=== PATIENT | male | born 1950 | race Caucasian/White ===

== ENCOUNTER 2017-09-25 15:12 | Inpatient (IN) | payer OTHER ==
[~2017-09-25] VITALS: Ht 172.7 cm; Wt 103.4 kg
--- NOTE | ~2017-09-25 | HC ---
[facility] [place] [address] [place] [address] CONSULTATION Name: JED MCKEON Room #: 221-P [facility] IN M.R.#: [id number] Admission: 09/25/17 Attend Phys: Nate Dillard MD Discharge: 09/30/17 Date of : 50 Report #: [id number] THIS REPORT FOR: //name// CC: Janis Dillard DATE OF SERVICE: 09/28/2017 CHIEF COMPLAINT: Bilateral lower extremity cellulitis. HISTORY OF PRESENT ILLNESS: This is a 67-year-old male patient with a history of hypertension, diabetes and alcohol abuse with cirrhosis, who was admitted from [facility] for lower extremity edema and cellulitis. He has been having ongoing swelling in his legs and drainage, redness and pain. He states that they are better since he has been here for the last couple of days. PAST MEDICAL HISTORY: Positive history of bulging disks, arthritis in his back, COPD, neuropathy, hypertension and atrial fibrillation. He has significant alcohol abuse and dependence with drinking a fifth of vodka daily, history of being a previous smoker, obstructive sleep apnea, history of alcohol withdrawal, hepatic encephalopathy and lower extremity edema. SOCIAL HISTORY: Positive for significant alcohol use and former smoker. FAMILY HISTORY: Noncontributory. REVIEW OF SYSTEMS: CONSTITUTIONAL: The patient denies fever, chills or weight loss. NEUROLOGICAL: The patient has a tremor. ENT: The patient denies earache, nasal drainage or sore throat. CARDIOVASCULAR: The patient denies chest pain, palpitations or diaphoresis. PULMONARY: The patient denies cough or shortness of breath. GASTROINTESTINAL: The patient denies nausea, vomiting or abdominal pain. ORTHOPEDIC: The patient complains of pain, swelling and drainage from his lower extremities. Other systems in a 14-point review of systems are negative. PHYSICAL EXAMINATION: VITAL SIGNS: At this time include pulse 67, respiratory rate of 17, temperature 97.3 and blood pressure 129/54. GENERAL: This is a chronically ill-appearing male patient, who appears to be in minimal distress. HEENT: Head normocephalic. Nose and throat are clear. NECK: Supple. LUNGS: Clear. HEART: Regular rate and rhythm. ABDOMEN: Distended. There may be some evidence of clinical ascites. [facility] [address] [place] [address] CONSULTATION Name: LINDAJED DYLAN Room #: 221-P [facility] IN ..#: [id number] Admission: 09/25/17 Attend Phys: Nate Dillard MD Discharge: 09/30/17 Date of : 50 Report #: [id number] tenderness noted. EXTREMITIES: Demonstrate 3+ edema, some lymph fistula is noted cutaneously. NEUROLOGIC: The patient is alert, does move all 4 extremities spontaneously. LABORATORY DATA: Includes sodium 137, potassium 4.1, BUN 22 and creatinine 1.6. Alkaline phosphatase 120, ALT is 14. Total protein 6.3. Albumin 2.6. White blood cell count 6.1 with a hemoglobin of 10.6 and hematocrit of 30.5. CLINICAL IMPRESSION: 1. Lymphedema, bilateral lower extremities. 2. Cellulitis, seemingly improved. RECOMMENDATIONS: At this point in time, we will recommend 0.1% triamcinolone cream and moisturizer to the lower extremities. We will recommend lymphedema therapy to start. We will recommend elevation of the lower extremities, nutritional support to maximize wound healing. Continue current medications. I appreciate being asked to see the patient in consultation. <ELECTRONICALLY SIGNED> By: Ismael Ryan MD 10/01/17 [phone] Ismael Ryan MD /nt
--- NOTE | ~2017-09-25 | HC ---
[facility] [place] [address] CONSULTATION Name: JED MCKEON Room #: 221-P [facility] IN M.R.#: [id number] Admission: 09/25/17 Attend Phys: Nate Dillard MD Discharge: 09/30/17 Date of : 50 Report #: [id number] THIS REPORT FOR: //name// CC: Janis Dillard DATE OF SERVICE: 09/28/2017 CHIEF COMPLAINT: Multiple ulcerations. HISTORY OF PRESENT ILLNESS: This is a 67-year-old male patient who was seen in the Intensive Care. He was admitted from his fpc. He was found unresponsive for an unknown period of time. Apparently CPR was started. He recovered spontaneous respirations. He had recently been hospitalized at [facility] for a necrotizing infection, requiring surgical intervention and skin grafting. He cannot provide a lot of information about himself at this time, although he complains of some pain. PAST MEDICAL HISTORY: Positive for a history of Gifvqlb-Elavl-Oujks. He has multiple cutaneous ulcerations, bilateral above-knee amputations. The patient had a perforated colon, requiring exploratory laparotomy and colostomy. He developed a possible necrotizing infection of his scrotum and perineum. He developed necrotizing lesion in his left arm from an infiltrated IV. He has required skin grafting in these areas. The patient also has a history of coronary artery disease and peripheral arterial disease. MEDICATIONS: Include amiodarone, gentamicin, sliding scale insulin and glucose. PAST SURGICAL HISTORY: Positive history of coronary artery bypass grafting as well as the detail procedures up above. ALLERGIES: Unknown. SOCIAL HISTORY: Unknown. FAMILY HISTORY: Unknown. REVIEW OF SYSTEMS: Unable to obtain due to the patient's level of consciousness. PHYSICAL EXAMINATION: VITAL SIGNS: At this time include temperature 96.5, pulse 114, respiratory rate 20 and blood pressure 96/63. GENERAL: This is a chronically ill-appearing male patient who appears to be in mild discomfort. HEENT: Head normocephalic. Nose and throat are clear. [address] [address] CONSULTATION Name: JED MCKEON Room #: 221-P [facility] IN M.R.#: [id number] Admission: 09/25/17 Attend Phys: Nate Dillard MD Discharge: 09/30/17 Date of : 50 Report #: [id number] NECK: Supple. LUNGS: Diminished. HEART: Tachycardic, without murmur. ABDOMEN: Soft. There is a surgical wound in the midline that appears to be healing. There is a mix of some fibrin and granulation, but no evidence of exposed deep structures and no evidence of infection. He has a colostomy that appears to be intact and the periostomy skin appears to be intact. SKIN: He has multiple excoriations to both buttocks that are superficial. He has a surgical wound to the left lateral thigh, likely a skin graft donor site. It is relatively clean and granulating. He has a wound to the left hand, which is mostly closed. CLINICAL IMPRESSION: 1. Multiple excoriations to the buttocks bilaterally. 2. Necrotizing infection of the left hand, status post split-thickness skin grafting. 3. Scrotal ulceration, likely secondary to prior surgical intervention for necrotizing infection. 4. Skin graft donor site, left lateral thigh. 5. Abdominal wall surgical wound. 6. Recent history of sepsis and necrotizing infection. RECOMMENDATIONS: At this point in time, we will recommend aggressive nutritional support to maximize wound healing and glycemic control. Recommend Xeroform gauze to the surgical wound to the abdominal wall as well as to the left lateral thigh. We will recommend a normal ostomy care to the colostomy. Recommend a bordered foam to his left hand and InterDry AG to help with some of the macerated skin in the scrotal and perineal region. He will need every 2-hour turning and repositioning. We will recommend continuing current medications. I appreciate being asked to see the patient in consultation. <ELECTRONICALLY SIGNED> By: Ismael Ryan MD 10/01/17 [phone] Ismael Ryan MD /pancho
--- NOTE | ~2017-09-25 | PATH ---
[facility] [place] [address] PATHOLOGY RPT PROCEDURE Name: JED TRAN Room #: 221-P [facility] IN M.R.#: [id number] Admission: 09/25/17 Date of : 50 Discharge: 09/30/17 Report #: [id number] Path Case #: [id number] [facility] Accession Number: [id number] . 01 Material submitted: . PART A: POLYP AT TRANSVERSE COLON PART B: MASS AT SIGMOID COLON . 01 Clinical history: . Pre-Op DX: Colon screening Post-Op DX: Colon polyp, sigmoid mass, diverticulosis . 02 Diagnosis: A. Polyp, transverse colon, endoscopic biopsy: - Compatible with a hyperplastic polyp. - Negative for dysplasia. . B. Mass, at sigmoid colon, endoscopic biopsy: - TINY FRAGMENT OF PARTIALLY SAMPLED TUBULAR ADENOMA ASSOCIATED WITH HIGH GRADE DYSPLASIA, FEW GLANDS SUSPICIOUS FOR INVASION (PLEASE SEE COMMENT). - Background of granulation tissue. - Fragments of unremarkable mucosa. LBQ/09/30/2017 . 02 Comment: Part B: Examination shows fragments of unremarkable mucosa along with two superficial foci of a tubular adenoma associated with high grade dysplasia. Attached to this fragment along with another additional fragment are samples of granulation tissue with an irregular gland. There is no desmoplasia or stromal reaction identified with this irregular gland. The lack of desmoplasia precludes a definitive diagnosis of invasive adenocarcinoma. (IUV/db; 09/30/17) . Co-review: Dr. Shanthi Obando . 02 Electronically signed: . Shante Spencer MD, Pathologist NPI- [id number] . 01 Gross description: . A. Received in formalin labeled "Jed Tran, polyp at transverse colon," is a single segment of sherman soft tissue measuring 0.2 cm in maximum dimension. The specimen is entirely submitted in cassette A1. . B. Received in formalin labeled "Jed Tran, BX mass sigmoid colon," are multiple segments of sherman soft tissue measuring 0.8 x 0[address] [address] PATHOLOGY RPT PROCEDURE Name: JED TRAN DYLAN Room #: 221-P DIS IN M.R.#: [id number] Admission: 09/25/17 Date of : 50 Discharge: 09/30/17 Report #: [id number] Path Case #: [id number] cm in aggregate dimensions. The specimen is filtered and submitted entirely in cassette B1. (TSD; 09/29/2017) TOB/TOB . 02 Pathologist provided ICD-10: D12.5, K63.5 . 02 CPT . 632845, 354843 Performed at: [address], [place] [id number] MD Bentley Ibarra MD Phone: [phone] Performed at: [address] [id number] MD Shante Spencer MD Phone: [phone]
--- NOTE | ~2017-09-25 | 2DMMODE ---
[place] [address] [facility] [place] [address] 2 D/M-MODE ECHOCARDIOGRAM Name: JED MCKEON Room #: 427-P ADM IN M.R.#: [id number] Admission: 09/25/17 Attend Phys: Nate Dillard MD Discharge: Date of : 50 Date of Service: 09/26/17 1005 Report #: [id number] THIS REPORT FOR: //name// APPROVED REPORT Study performed: 09/26/2017 08:02:34 EXAM: Comprehensive 2D, Doppler, and color-flow Echocardiogram Patient Location: Bedside Room #: 427 Status: on-call BSA: 2.16 HR: 68 bpm BP: 113/41 mmHg Rhythm: NSR Other Information Study Quality: Adequate Indications Cough, leg swelling. Hx: A-fib, COPD, HTN, ETOH abuse. 2D Dimensions RVDd: 37.57 mm LVEF(%): 67.62 (>50%) IVSd: 11.25 (7-11mm) LVOT Diam: 22.33 (18-24mm) LVDd: 51.04 mm PWd: 11.94 (7-11mm) Ascending Ao: 32.23 (22-36mm) LVDs: 31.74 (25-40mm) Aortic Root: 34.27 mm Blancas's LVEF: 67.62 % Volumes Left Atrial Volume (Systole) Single Plane 4CH: 53.64 mL Single Plane 2CH: 75.15 mL LA ESV Index: 32.00 mL/m2 Aortic Valve AoV Peak Pablo.: 2.01 m/s AO Peak Gr.: 16.12 mmHg LVOT Max P.58 mmHg AO Mean Gr.: 9.07 mmHg AO V2 Mean: 1.43 m/s LVOT Max V: 1.38 m/s AO V2 VTI: 47.36 cm TIFFANY Vmax: 2.68 cm2 Mitral Valve [facility] [address] 2 D/M-MODE ECHOCARDIOGRAM Name: JED MCKEON Room #: 427-P [facility] IN .R.#: [id number] Admission: 09/25/17 Attend Phys: Nate Dillard MD Discharge: Date of : 50 Date of Service: 09/26/17 1005 Report #: [id number] E/A Ratio: 0.9 MV Decel. Time: 331.01 ms MV E Max Pablo.: 1.13 m/s MV A Pablo.: 1.24 m/s MV PHT: 95.99 ms IVRT: 69.20 ms Pulmonary Valve PV Peak Pablo.: 0.92 m/s PV Peak Gr.: 3.40 mmHg Pulmonary Vein P Vein S: 0.96 m/s P Vein A: 0.32 m/s P Vein D: 0.65 m/s P Vein A Dur.: 143.0 msec P Vein S/D Ratio: 1.48 Tricuspid Valve TR Peak Pablo.: 3.57 m/s RAP Estimate: 5.00 mmHg TR Peak Gr.: 51.12 mmHg PA Pressure: 56.00 mmHg Left Ventricle The left ventricle is normal size. There is normal LV segmental wall motion. There is normal left ventricular wall thickness. Left ventricular systolic function is normal. LVEF is 55-60%. Mild diastolic dysfunction is present (impaired relaxation pattern). Right Ventricle The right ventricle is normal size. The right ventricular systolic function is normal. Atria The left atrium size is normal. The right atrium size is normal. Aortic Valve Aortic valve is mildly calcified. No aortic regurgitation is present. There is no aortic valvular stenosis. Mitral Valve The mitral valve is normal in structure. Moderate mitral annular calcification. Mild to moderate mitral regurgitation. No evidence of mitral valve stenosis. Tricuspid Valve The tricuspid valve is normal in [place] [address] 2 D/M-MODE ECHOCARDIOGRAM Name: JED MCKEON Room #: 427-P [facility] IN .R.#: [id number] Admission: 09/25/17 Attend Phys: Nate Dillard MD Discharge: Date of : 50 Date of Service: 09/26/17 1005 Report #: [id number] regurgitation. Estimated PAP is 55-60mmHg. Pulmonic Valve Pulmonic valve is not well visualized. Great Vessels The aortic root is normal in size. The ascending aorta is normal in size. IVC is normal in size and collapses >50% with inspiration. Pericardium There is no pericardial effusion. Left pleural effusion is noted. <Conclusion> The left ventricle is normal size. There is normal left ventricular wall thickness. Left ventricular systolic function is normal. Mild diastolic dysfunction is present (impaired relaxation pattern). The right ventricle is normal size. The left atrium size is normal. There is no aortic valvular stenosis. The mitral valve is normal in structure. Moderate mitral annular calcification. Mild to moderate mitral regurgitation. Mild tricuspid regurgitation. Estimated PAP is 55-60mmHg. <ELECTRONICALLY SIGNED> By: Sudhir Cordova MD 09/26/17 1005 1005 1005 Sudhir Cordova MD /INF
--- NOTE | ~2017-09-25 | HC ---
[facility] [address] [address] CONSULTATION Name: JED TRAN Room #: 427-P ADM IN M.R.#: [id number] Admission: 09/25/17 Attend Phys: Nate Dillard MD Discharge: Date of : 50 Report #: [id number] THIS REPORT FOR: //name// CC: Janis Dillard DATE OF SERVICE: 09/26/2017 CONSULTATION: Infectious Diseases. HISTORY OF PRESENT ILLNESS: Mr Tran is a 67-year-old white male who comes to the hospital because of cellulitis and swelling of his legs. The patient had been recently hospitalized for complications related to alcoholic liver disease. He was noted to have stasis and edema in his legs. He has been prescribed elevation and CARLTON hose compression stockings. The patient says he was doing this at home and was doing well and then the legs just "blew up." They became red, warm, tender, painful and draining. In this setting, the patient was seen at [facility] where he had been recently and was referred to [place] for further therapy. PAST MEDICAL HISTORY: Significant for diabetes, atrial fibrillation, diastolic dysfunction with some mitral regurgitation, chronic edema, cirrhosis, COPD, osteoarthritis, chronic back pain. MEDICATION RECONCILIATION: Current medications include spironolactone 50 mg daily, vancomycin 1000 mg IV twice a day, gabapentin 400 mg daily, iron 325 mg daily, donepezil 5 mg daily, magnesium oxide 400 mg daily, citalopram 20 mg daily, furosemide 40 mg b.i.d., pantoprazole 40 mg daily, enoxaparin 30 mg at bedtime, risperidone 0.25 mg b.i.d., lactulose 10 grams b.i.d., tamsulosin 0.4 mg at bedtime, Silvadene and miconazole to the skin on the lower legs, MiraLax 17 grams daily. SOCIAL HISTORY: The patient is . He lives by himself. 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 He did smoke cigarettes, but quit about 6 years ago. He did drink alcohol, but has been completely abstinent for about the last year. He says he has good support from friends and family in his community of [place], [place], although he does live by himself. REVIEW OF SYSTEMS: GENERAL: The patient is not complaining of fevers, chills, sweats. ENT: The patient is complaining of seasonal allergies. No sore throat, trouble swallowing. CHEST: The patient denies cough, chest pain, shortness of breath. GASTROINTESTINAL: The patient denies nausea, vomiting. He has loose stools from medication. [facility] [address] [place] [address] CONSULTATION Name: JED TRAN Room #: 427-P [facility] IN M.R.#: [id number] Admission: 09/25/17 Attend Phys: Nate Dillard MD Discharge: Date of : 50 Report #: [id number] GENITOURINARY: No complaints. EXTREMITIES: Pain in both lower legs, particularly on the right. The information is most concentrated in the area of his Achilles tendons. PHYSICAL EXAMINATION: GENERAL: The patient appears older than her stated age, alert, oriented, comfortable, not in any distress. VITAL SIGNS: Show the patient is afebrile. SKIN: Shows no exanthems. The lower legs show chronic venous stasis changes. There appears to be mild to moderate superimposed cellulitis with erythema. The skin is very dry and dyshidrotic. There is 1-2+ swelling. The patient says this is actually better than his usual baseline. The patient says that the legs have been weeping in spite of using his CARLTON hose and keeping his legs elevated. ENT: Shows the subconjunctival hemorrhage on the right eye. Oral cavity normal. HEART: Sounds normal. LUNGS: Clear. ABDOMEN: Belly soft, not tender. Possible mild distention with ascites. EXTREMITIES: As noted with the skin changes, 1+ edema bilaterally, left greater than right. LABORATORY DATA: White count is 5.3, hemoglobin 9.7, platelets have not been measured. Electrolytes normal. BUN 20, creatinine 1.0. Glucose has ranged from 93-107. The ammonia is 5. Blood cultures x 2 are negative so far. Sonogram shows cirrhosis of the liver with fatty liver. IMPRESSION: Stasis with secondary cellulitis. I concur with vancomycin. The Zosyn has been discontinued. We will need to do elevation and compression. I also instructed to put pillows behind the calves. I will try to get Tubigrip stockings. I think the patient's main problem is dyshidrosis which should resolve with elevation, compression and a moisturizing cream. I will have dietitian bring Lalo to try to improve wound healing and skin nutrition as well as measure a zinc level. We can check the BNP. At this point, the patient's cellulitis is relatively minor. I think aggressive treatment of the edema will resolve his problems. He will need to maintain this elevation and compression regimen after discharge to prevent a relapse. <ELECTRONICALLY SIGNED> By: Bhavik Wei MD 09/27/17 1529 1155 0026 Bhavik Wei MD /pancho
[~2017-09-25 15:12] MED LIST: 8 HOUR PAIN RE650 M1 PER TUBE; AMLODIPINE BESY10 MG PO; ASPIRIN325 PO; BENICAR40 MG PO; BIOTENE MOIST44.3 ML; BUSPIRONE HCL10 MG PER TUBE; CARDIZEM30 MG PER TUBE; CLONIDINE0.1 PER TUBE; COREG25 MG PER TUBE; FLOMAX0.4 MG PER TUBE; HTN MEDS; HYDROCODON-ACE1 EAC8 PO; IBUPROFEN 800800 MG PO; LASIX 20 MG TAB20 MG PO; MICONAZOLE5 GM TOP; NEURONTIN 300300 M1 PO; NORCO 5-325 TA1 EACH PO; NORFLEX100 MG PO; OLANZAPINE2.5 MG PER TUBE; OXYCODONE HCL 55 MG PO; PACERONE 200 M200 M1 PER TUBE; PEPCID20 MG PER TUBE; SILVADENE20 GM TP; VITAMIN B-1100 M1 PER TUBE; XIFAXAN550 M1 PER TUBE
[2017-09-25 15:18] VITALS: BP 152/56
[2017-09-25 17:58] LABS: ABSOLUTE NEUTROPHILS 3.4 thou/uL (1.4-8.2); EOSINOPHILS 6.8 % (0.0-3.0); HEMATOCRIT 32.3 % (42.0-52.0); HEMOGLOBIN 11.1 gm/dL (14.0-18.0); LYMPHOCYTES 32.3 % (24.0-44.0); MCH 33.1 pg (26.0-34.0); MCHC 34.5 g/dL (28.0-37.0); MCV 96.2 fL (80.0-100.0); MONOCYTES 10.3 % (1.0-8.0); POLYS 49.6 % (36.0-66.0); RBC 3.36 mil/uL (4.50-6.00); RDW 15.2 % (10.5-14.5); WBC 6.9 thou/uL (4.0-11.0)
[2017-09-25 18:08] LABS: CALCIUM 9.1 mg/dL (8.5-10.1); CREATININE 1.6 mg/dL (0.7-1.3); POTASSIUM 4.1 mmol/L (3.5-5.1)
[2017-09-25 18:13] LABS: ALBUMIN 2.6 g/dL (3.4-5.0); TOTAL BILIRUBIN 3.2 mg/dL (<0.1-1.0); TOTAL PROTEIN 6.3 g/dL (6.4-8.2)
[2017-09-25] MEDS ORDERED: CONSTULOSE10 GM/152 PO (18:25)
[2017-09-25] MEDS ORDERED: LEXAPRO 10 MG T10 M1 PO (18:25)
[2017-09-25] MEDS ORDERED: MAGOX 400400 MG PO (18:26)
[2017-09-25] MEDS ORDERED: LASIX 40 MG TAB40 M2 PO (18:26)
[2017-09-25] MEDS ORDERED: ALDACTONE50 MG PO (18:28)
[2017-09-25 18:30] LABS: PLATELET ESTIMATE NORMAL
[2017-09-25] MEDS ORDERED: ARICEPT 5 MG TAB5 MG PO (18:30)
[2017-09-25 18:31] LABS: LARGE PLATELETS OCCASIONAL
[2017-09-25] MEDS ORDERED: PROTONIX40 M1 PO (18:32)
[2017-09-25] MEDS ORDERED: FOLIC ACID 40400 MC1 PO (18:33)
[2017-09-25] MEDS ORDERED: IRON325 PO (18:33)
[2017-09-25] MEDS ORDERED: RISPERIDONE 00.25 M1 PO (18:36)
[2017-09-25] MEDS ORDERED: NEURONTIN 400M400 M2 PO (18:36)
[2017-09-25 19:05] VITALS: BP 152/67
[2017-09-25 21:01] VITALS: BP 152/57
[2017-09-26 05:18] LABS: HEMATOCRIT 27.2 % (42.0-52.0); HEMOGLOBIN 9.7 gm/dL (14.0-18.0); MCH 33.9 pg (26.0-34.0); MCHC 35.7 g/dL (28.0-37.0); MCV 94.9 fL (80.0-100.0); RBC 2.86 mil/uL (4.50-6.00); WBC 5.3 thou/uL (4.0-11.0)
[2017-09-26 05:31] LABS: CALCIUM 8.3 mg/dL (8.5-10.1); CREATININE 1.6 mg/dL (0.7-1.3); POTASSIUM 3.9 mmol/L (3.5-5.1)
[2017-09-26 05:33] VITALS: BP 113/41
[2017-09-26 07:09] VITALS: BP 122/39
[2017-09-26 19:48] VITALS: BP 118/49
[2017-09-27 04:20] VITALS: BP 119/46
[2017-09-27 05:50] LABS: ABSOLUTE NEUTROPHILS 2.8 thou/uL (1.4-8.2); BASOPHILS 0.8 % (0.0-2.0); EOSINOPHILS 8.5 % (0.0-3.0); HEMATOCRIT 30.5 % (42.0-52.0); HEMOGLOBIN 10.6 gm/dL (14.0-18.0); LYMPHOCYTES 34.5 % (24.0-44.0); MCH 33.3 pg (26.0-34.0); MCHC 34.6 g/dL (28.0-37.0); MCV 96.2 fL (80.0-100.0); MONOCYTES 9.3 % (1.0-8.0); POLYS 46.9 % (36.0-66.0); RBC 3.17 mil/uL (4.50-6.00); RDW 14.6 % (10.5-14.5); WBC 6.1 thou/uL (4.0-11.0)
[2017-09-27 05:59] LABS: INR 1.3; PROTIME 13.2 Seconds (9.3-11.4)
[2017-09-27 06:00] LABS: CALCIUM 8.8 mg/dL (8.5-10.1); CREATININE 1.6 mg/dL (0.7-1.3); POTASSIUM 3.9 mmol/L (3.5-5.1)
[2017-09-27 06:10] LABS: % SATURATION 51 % (20-39); IRON 99 ug/dL (65-175); TIBC 195 ug/dL (250-450)
[2017-09-27 07:06] VITALS: BP 145/55
[2017-09-27 07:55] LABS: LARGE PLATELETS MANY
[2017-09-27 19:23] VITALS: BP 130/58
[2017-09-28 08:07] VITALS: BP 155/68
[2017-09-28 13:05] LABS: ALBUMIN 2.6 g/dL (3.4-5.0); DIRECT BILIRUBIN 1.4 mg/dL (<0.1-0.3); TOTAL BILIRUBIN 4.3 mg/dL (<0.1-1.0); TOTAL PROTEIN 6.3 g/dL (6.4-8.2)
[2017-09-28 13:50] LABS: CALCIUM 9.4 mg/dL (8.5-10.1); CREATININE 1.6 mg/dL (0.7-1.3); POTASSIUM 4.1 mmol/L (3.5-5.1)
[2017-09-28 15:07] LABS: HEPATITIS B SURFACE AG Negative (Negative); HEPATITIS C VIRUS AB 0.1 (0.0-0.9)
[2017-09-28 19:46] VITALS: BP 129/54
[2017-09-29 07:15] VITALS: BP 117/52
[2017-09-29 12:11] LABS: MITOCHONDRIAL ANTIBODY 7.6 Units (0.0-20.0)
[2017-09-30 00:03] VITALS: BP 93/50
[2017-09-30 07:21] LABS: HEMATOCRIT 29.5 % (42.0-52.0); HEMOGLOBIN 10.5 gm/dL (14.0-18.0); MCH 33.7 pg (26.0-34.0); MCHC 35.7 g/dL (28.0-37.0); MCV 94.4 fL (80.0-100.0); RBC 3.13 mil/uL (4.50-6.00); RDW 14.7 % (10.5-14.5)
[2017-09-30 07:26] LABS: CALCIUM 8.7 mg/dL (8.5-10.1); CREATININE 1.5 mg/dL (0.7-1.3); POTASSIUM 3.9 mmol/L (3.5-5.1)
[2017-09-30 08:12] VITALS: BP 100/55
[2017-09-30] MEDS ORDERED: KEFLEX500 M1 PO (09:52)
[2017-09-30 10:49] VITALS: BP 100/55
== END 2017-09-30 10:15 | disposition home or self-care (01) | DRG 602 ==
LOC: ER 15:12 → EROBS 18:41 → SICU 18:41 → 4E 20:46 → SICU 09-27 15:51
PROVIDERS: Hospitalist; Internal Medicine; Internal Medicine Gastroenterology; Nurse Practitioner; Physician Assistant
DX: L03.116 Cellulitis of left lower limb (principal); E43 Unspecified severe protein-calorie malnutrition; I50.33 Acute on chronic diastolic (congestive) heart failure; I11.0 Hypertensive heart disease with heart failure; L03.115 Cellulitis of right lower limb; M19.90 Unspecified osteoarthritis, unspecified site; J44.9 Chronic obstructive pulmonary disease, unspecified; I48.91 Unspecified atrial fibrillation; G47.33 Obstructive sleep apnea (adult) (pediatric); E11.40 Type 2 diabetes mellitus with diabetic neuropathy, unspecified; K70.30 Alcoholic cirrhosis of liver without ascites; M51.36 Other intervertebral disc degeneration, lumbar region; F32.9 Major depressive disorder, single episode, unspecified; D69.6 Thrombocytopenia, unspecified; D64.9 Anemia, unspecified; D12.3 Benign neoplasm of transverse colon; K31.819 Angiodysplasia of stomach and duodenum without bleeding; N50.89 Other specified disorders of the male genital organs; I87.8 Other specified disorders of veins; K63.9 Disease of intestine, unspecified; K76.0 Fatty (change of) liver, not elsewhere classified; K80.20 Calculus of gallbladder without cholecystitis without obstruction; N40.0 Benign prostatic hyperplasia without lower urinary tract symptoms; S30.810A Abrasion of lower back and pelvis, initial encounter; X58.XXXA Exposure to other specified factors, initial encounter; Y93.89 Activity, other specified; Y92.89 Other specified places as the place of occurrence of the external cause; Y99.8 Other external cause status; Z79.899 Other long term (current) drug therapy; Z68.34 Body mass index [BMI] 34.0-34.9, adult; Z87.891 Personal history of nicotine dependence; Z89.612 Acquired absence of left leg above knee; Z89.611 Acquired absence of right leg above knee; Z95.1 Presence of aortocoronary bypass graft; Z80.0 Family history of malignant neoplasm of digestive organs
CPT/HCPCS: 10084; 15002; 62110; 62900; 70005

== ENCOUNTER 2017-12-08 05:28 | Inpatient (IN) | payer OTHER ==
[~2017-12-08] VITALS: Ht 172.7 cm; Wt 116.1 kg
--- NOTE | ~2017-12-08 | PATH ---
[facility] [address] [place] [address] PATHOLOGY RPT PROCEDURE Name: JED MCKEON Room #: 245-P DIS IN M.R.#: [id number] Admission: 12/09/17 Date of : 50 Discharge: 12/22/17 Report #: [id number] Path Case #: [id number] Note [facility] Accession Number: [id number] TESTS RESULT FLAG UNITS REF RANGE LAB Clinician Provided Cytology Information No. of containers..01 Other (Miscellaneous) Source: PLEURAL FLUID DIAGNOSIS: 02 PLEURAL FLUID INCONCLUSIVE. REACTIVE MESOTHELIAL CELLS ARE PRESENT. THIS INTERPRETATION INCLUDES EVALUATION OF A CELL BLOCK. COMMENT; FEW ATYPICAL CELLS WERE PRESENT WHICH WERE NEGATIVE FOR MARIXA-EP4 AND POSITIVE FOR CALRETININ CONSISTENTW ITH REACTIVE MESOTHELIAL CELLS. ABUDANT ACUTE AND CHRONIC INFLAMMATORY CELLS ARE ALSO PRESENT Signed out by: 02 Glen Lopez MD, Pathologist NPI- [id number] Performed by: Oumar Cartagena, Labor Delivery Rn ([facility]) Gross description: 01 20ML, RED, CLOUDY /LCS FLAG LEGEND: L-Low Normal,H-High Normal,LL-Alert Low,HH-Alert High <-Panic Low,>-Panic High,A-Abnormal,AA-Critical Abnormal Performed at: [address] [place] [address] Bentley Ibarra MD, [address] [address] Shante Spencer MD, Specimen Comment: A courtesy copy of this report has been sent to Specimen Comment: [phone]. Specimen Comment: Report sent to Specimen Comment: A duplicate report has been generated due to demographic updates. Performed at: [address], [place], [place] [id number] [address] [address] PATHOLOGY RPT PROCEDURE Name: JED MCKEON Room #: 245-P DIS IN M.R.#: [id number] Admission: 12/09/17 Date of : 50 Discharge: 12/22/17 Report #: [id number] Path Case #: [id number] MD Bentley Ibarra [place] Phone: [phone]
--- NOTE | ~2017-12-08 | HC ---
[facility] [place] [address] [place] [address] CONSULTATION Name: JEANNINEJED CHOWDHURY Room #: 245-P [facility] IN M.R.#: [id number] Admission: 12/09/17 Attend Phys: Sacha Roe Discharge: 12/22/17 Date of : 50 Report #: [id number] THIS REPORT FOR: //name// CC: Sacha Mitchell Janis Mcmullen DATE OF SERVICE: 12/15/2017 REASON FOR CONSULTATION: Elevated creatinine. HISTORY OF PRESENT ILLNESS: This 67-year-old patient with known cirrhosis was admitted for a laparoscopic sigmoidectomy for indication of tubular adenoma with high-grade dysplasia concerning for invasive carcinoma. Postoperatively, he was recovering uneventfully until yesterday when he developed decreased appetite, abdominal distention, underwent a CAT scan of the abdomen with IV contrast, developed decreasing urine output, decreased blood pressure and then elevated creatinine from 1.1-2.0, elevated BUN from 22-33. He is transferred to ICU. Procalcitonin was rather high. PAST MEDICAL HISTORY: Known diagnosis of cirrhosis, COPD, paroxysmal atrial fibrillation, chronic tremor. FAMILY HISTORY: Positive for cancer and tremor. REVIEW OF SYSTEMS: Cannot be taken due to the fact that he is quite lethargic in the ICU, difficult to arouse. PHYSICAL EXAMINATION: GENERAL: This is a chronically ill-appearing gentleman, again somnolent, difficult to arouse in ICU, nasal cannula oxygen in place. SKIN: Shows him to be rather swollen. SKELETAL: Well-developed, well-nourished. HEENT: Extraocular movements cannot be tested. Sclerae are icteric. Mucous membranes are dry. NECK: Supple. CHEST: Shows diminished breath sounds. HEART: Regular with tachycardia. ABDOMEN: Distended, diffusely tender with rebound. EXTREMITIES: Showing 1-2+ edema throughout. LABORATORY DATA: Hemoglobin 10.9, white count 17, platelets 114. Sodium 141, potassium 4.3, chloride 109, bicarbonate 22, creatinine 2 up from 1.1, BUN 22 up from 33. ASSESSMENT AND PLAN: 1. Acute kidney injury. He appears to be septic, likely has peritonitis with [facility] [address] [place] [address] CONSULTATION Name: JED MCKEON Room #: 245-P [facility] IN M.R.#: [id number] Admission: 12/09/17 Attend Phys: Sacha Roe Discharge: 12/22/17 Date of : 50 Report #: [id number] peritoneal findings, leukocytosis, a very high procalcitonin and now in the setting of decreasing blood pressure. He also has an element of contrast nephropathy. He got IV contrast with his CAT scan yesterday and certainly that is playing some role. I expect we may have trouble with acute kidney injury in an ongoing fashion here. I will be getting some coags as well. This may actually come towards renal replacement therapy. I will be giving him some IV fluids in an effort to increase his urine output. 2. Apparent peritonitis, status post laparoscopic sigmoidectomy. 3. Cirrhosis. 4. History of chronic obstructive pulmonary disease. <ELECTRONICALLY SIGNED> By: Reji Magallon MD 12/24/17 1107 1132 1349 Reji Magallon MD /nt
--- NOTE | ~2017-12-08 | EKG ---
[address] [address] ELECTROCARDIOGRAM REPORT Name: MARIOLUCIANAJED Room #: 150-7 ADM IN M.R.#: [id number] Admission: 12/09/17 Attend Phys: Sacha Roe Discharge: Date of : 50 Report #: [id number] THIS REPORT FOR: //name// [facility] Test Date: 2017-12-09 Test Time: 07:47:46 Pat Name: JED MCKEON Department: Room: 150 7 Gender: M Baccarat Manager: JUANITO : 1950 Requested By: Sacha Mitchell Order Number: [id number] MD: Nitin Franks Measurements Intervals Causey Rate: 82 P: 62 IL: 161 QRS: 32 QRSD: 87 T: 49 QT: 439 QTc: 513 Interpretive Statements Sinus rhythm Borderline low voltage, extremity leads Nonspecific ST and T wave abnormality Prolonged QT interval Compared to ECG 04/24/2015 08:21:17 Prolonged QT interval now present Electronically Signed On 12-09-2017 9:22:06 CDT by Nitin Franks [email or web address] <ELECTRONICALLY SIGNED> By: Nitin Franks MD, FACC 12/09/17 0922 0747 0747 Nitin Franks MD, [facility] /EPI
--- NOTE | ~2017-12-08 | PATH ---
[facility] [place] [address] [place] [address] PATHOLOGY RPT PROCEDURE Name: JED TRAN Room #: 237-P ADM IN M.R.#: [id number] Admission: 12/09/17 Date of : 50 Discharge: Report #: [id number] Path Case #: [id number] [facility] Accession Number: [id number] . 01 Material submitted: . PART A: SIGMOID COLON OPEN END IS PROXIMAL PART B: ANASTOMOTIC RINGS . 01 Clinical history: . Colonic mass . 02 Diagnosis: A. Colon, segment of colon "sigmoid colon", segment of resection: - INVASIVE MODERATELY DIFFERENTIATED ADENOCARCINOMA EXTENDING THROUGH THE MUSCLE (pT3)MEASURING 3.0 CM IN GREATEST DIMENSION, 7.5 CM FROM THE PROXIMAL MARGIN WHICH IS THE CLOSEST MARGIN. - Lymph nodes (9): Reactive changes negative for malignancy. . B. Portion of colon, "anastomotic ring": - Recent submucosal hemorrhage with no other diagnostic changes. (ARPAN:rolly;yann;12/14/2017) . SYNOPTIC: COLON AND RECTUM RESECTION Procedure ___ Sigmoidectomy . Tumor Site ___ Sigmoid colon . Tumor Size Greatest dimension: 3 cm . Macroscopic Tumor Perforation ___ Not identified . Histologic Type ___ Adenocarcinoma . Histologic Grade ___ G2: Moderately differentiated . Tumor Extension ___ Tumor invades through muscularis propria . Margins ___ All margins are uninvolved with invasive carcinoma, high-grade dysplasia, intramucosal adenocarcinoma, and adenoma + Margins examined: Proximal and distal [facility] [address] [place] [address] PATHOLOGY RPT PROCEDURE Name: JED TRAN Room #: 237-P [facility] IN ..#: [id number] Admission: 12/09/17 Date of : 50 Discharge: Report #: [id number] Path Case #: [id number] + Distance of invasive carcinoma from proximal margin: 7.5 cm + Specify closest margin: Proximal . For resection specimens only . Proximal Margin ___ Uninvolved by invasive carcinoma . Distal Margin ___ Uninvolved by invasive carcinoma . Radial Margin ___ Not applicable . Deep Margin ___ Uninvolved by invasive carcinoma . Treatment Effect ___ No known treatment effect . Lymphovascular Invasion ___ Not identified . Perineural Invasion ___ Not identified . Tumor Deposits ___ Not identified . Regional Lymph Nodes . Lymph nodes submitted or found . + Number of Lymph Nodes Involved: 0 . + Number of Lymph Nodes Examined: 9 . Pathologic Stage Classification (pTNM, AJCC 8th Edition) Primary Tumor (pT) ___ pT3: Tumor invades through the muscularis propria . Regional Lymph Nodes (pN) ___ pN0: No regional lymph node metastasis . + Additional Pathologic Findings + ___ None identified . + Ancillary Studies [facility] [place] [address] PATHOLOGY RPT PROCEDURE Name: JED TRAN Room #: 237-P ADM IN M.R.#: [id number] Admission: 12/09/17 Date of : 50 Discharge: Report #: [id number] Path Case #: [id number] + ___ MSI testing done on block A4. . (ARPAN/db; 12/14/2017) AGA/12/15/2017 . 02 Comment: Section A 4 was also reviewed by Dr. Fay Pan who agreed with the staging of pT3 . MSI testing was done on block A4 at the request of Dr. Sacha Mitchell. . At the request of Dr. Mitchell, mismatch repair (MMR) protein immunohistochemical staining was performed. . Specimen: Formalin fixed paraffin embedded tissue Specimen ID: [id number], block A4 Reason for testing: To evaluate for evidence of defective mismatch repair proteins. Method: Immunohistochemical staining for the presence or absence of protein expression of one or more of the following MMR protein markers: MLH1, MSH2, MSH6 and PMS2. Tumor type: Adenocarcinoma . Results: MLH1 - Preserved MSH2 - Preserved MSH6 - Preserved PMS2 - Preserved . Mismatch Repair Status: MMR Proficient (MMR-P) . Interpretation: . All four MMR proteins are preserved within tumor cells. This suggests the presence of normal DNA mismatch repair function within the tumor and an observable defect in mismatch repair is not identified. The likelihood that this patient has an inherited germline mutation syndrome due to defective mismatch repair is reduced but not totally eliminated. If the patient has a strong personal or family history of HPNCC/Duffy syndrome related cancers (colorectal, endometrial, gastric, ovarian, pancreatic, ureter/renal pelvis, biliary tract, brain, small bowel and Bucoda-Samir syndrome), consider MSI testing by PCR methodology. Suggest clinical correlation and follow up. . These test results are designed for screening purposes only and are useful tools in identifying cancer patients that are more likely to have Duffy [address] [address] PATHOLOGY RPT PROCEDURE Name: JED TRAN Room #: 237-P [facility] IN .R.#: [id number] Admission: 12/09/17 Date of : 50 Discharge: Report #: [id number] Path Case #: [id number] Syndrome related diagnoses. Tests should be interpreted in the context of clinical findings, family history and laboratory data. Abnormal IHC results for MMR protein expression are not considered diagnostic for Duffy Syndrome. (SHA:eloisa; 12/15/2017) . . 02 Electronically signed: . lGen Lopez MD, Pathologist NPI- [id number] . 01 Gross description: . The specimen is received in formalin, labeled "Jed Tran, sigmoid colon open end is proximal", is a oriented segment of colon measuring 18.5 cm in length with one open margin designated as proximal and the other stapled distal. The proximal margin circumference is 4.5 cm and the distal circumference is 5.0 cm. The margins are free of mass. The serosa is sherman-pink with abundantly attached pericolic fat that measures up to 7.0 cm and has two focuses of tattoos. There is a sherman-brown firm solitary mass measuring 3.0 x 1.4 cm that is 7.5 cm from the proximal and 8.0 cm from the distal margins (between the tattoos). The mass abuts the serosa but does not extend to the underlying pericolic fat and measures up to 0.4 cm in height. The uninvolved mucosa is sherman-pink and unremarkable. . Primary Counselor tissue is submitted as follows: A1. Proximal margin A2. Distal margin A3. Pericolic fat margin A4. Mass abutting serosa A5. Mass to nearest pericolic fat margin A6-A7. Mass, bisected A8. Mass to uninvolved mucosa (blue = proximal and other = distal) A9. Uninvolved mucosa (blue = proximal and other = distal). A10-A15.Pericolic fat for possible lymph nodes candidate . B. The specimen is received in formalin, labeled "Jed Tran, and anastomotic rings", are two donuts with staple and glistening mucosa measuring 2.2 x 1.5 x 0.7 cm (B1) an 1.7 x 1.3 x 1.0 cm (B2). Primary Counselor tissue is submitted in B1-B2. ([facility]; 12/10/2017) SHS/SHS . 02 Pathologist provided ICD-10: C18.7 . 02 CPT . 635331, 722225, B82994, [id number] [address] [address] PATHOLOGY RPT PROCEDURE Name: JED TRAN Room #: 237-P ADM IN M.R.#: [id number] Admission: 12/09/17 Date of : 50 Discharge: Report #: [id number] Path Case #: [id number] Specimen Comment: A courtesy copy of this report has been sent to Specimen Comment: [phone], , . Specimen Comment: Report sent to , DR ESCALANTE / DR BOB Specimen Comment: A duplicate report has been generated due to demographic updates. Performed at: 01 [facility] [address] [facility] [address], [place] [id number] MD Bentley Ibarra MD Phone: [phone] Performed at: [address] [id number] MD Shante Spencer MD Phone: [phone]
--- NOTE | ~2017-12-08 | HC ---
[facility] [place] [address] [place] [address] CONSULTATION Name: JED MCKEON Room #: 237-P ADM IN M.R.#: [id number] Admission: 12/09/17 Attend Phys: Sacha Roe Discharge: Date of : 50 Report #: [id number] THIS REPORT FOR: //name// CC: Sacha Mitchell Janis Benedict DATE OF SERVICE: 12/15/2017 REASON FOR CONSULTATION: I was asked to evaluate concerning sepsis. HISTORY OF PRESENT ILLNESS: The patient is a 67-year-old, underlying cirrhosis, who on 12/09/2017 underwent a laparoscopic left hemicolectomy for colon cancer. He had splenic flexure mobilization. No gross signs of metastatic disease. No lymphadenopathy or surrounding mass noted. No intraoperative complications. Postoperatively, was doing well until yesterday when he had increased abdominal pain. Over the ensuing 24 hours, he developed tachycardia. He has been relatively lethargic. He pulled his NG tube out. He has had progressive abdominal distention and tenderness, still having some loose stools. No vomiting. A CT scan yesterday showed free air in the peritoneal cavity. He has had minimal relief of his pain with IV narcotics. REVIEW OF SYSTEMS: The patient has had no rash or decubitus. He has had decreased urine output. Now has left upper extremity PICC. No headache. No mucositis. No cough or sputum production. CT scan did show bilateral effusions. He has an indwelling Bellamy catheter. A 10-point review otherwise negative. ALLERGIES: None. MEDICATIONS: As noted on his MAR, started on Zosyn earlier today. PAST MEDICAL HISTORY: Cirrhosis, alcohol use, COPD, paroxysmal atrial fibrillation, tremor. FAMILY HISTORY: Cancer. SOCIAL HISTORY: Past smoker. No current alcohol intake. PHYSICAL EXAMINATION: GENERAL: Ill, lethargic, would arouse and able to answer some questions. Stated he felt bad all over. Oxygen saturation was normal on room air. VITALS: tachycardic bp 100 syst with respiratory rate 20 on 2L 02. EYES: Icteric. MOUTH: Dry. NECK: Supple, with no thyromegaly or JVD. No palpable adenopathy. LUNGS: Decreased breath sounds in the bases bilaterally, no consolidation. [facility] [address] [place] [address] CONSULTATION Name: JED MCKEONN Room #: 237-P ADM IN M.R.#: [id number] Admission: 12/09/17 Attend Phys: Sacha Roe Discharge: Date of : 50 Report #: [id number] HEART: Tachycardic and regular, without murmur, gallop or rub. ABDOMEN: Distended. It was diffusely tender with rebound and guarding. External genitalia with no mass or lesion within, indwelling Bellamy catheter. RECTAL: Not performed. EXTREMITIES: Lower extremity edema. No other ulcerations. NEUROLOGIC: Nonfocal. He had mild encephalopathy. Able to move all extremities. LABORATORY STUDIES: Reviewed. From this morning, his creatinine was up to 2 at baseline of 1.1. Bicarbonate at 22, bilirubin 4.3, alkaline phosphatase 111. ALT 5 yesterday. Lactate 3.2 this afternoon. This morning, his hemoglobin is 10.9, WBC 17, platelet count 114,000, no differential. Procalcitonin this morning was 22.6. Urinalysis unremarkable. ABG on 2 liters showed a pO2 of 67, pCO2 of 39, pH 7.39, bicarbonate of 23, lactate 3.4. Blood cultures are pending. KUB showed cardiomegaly with vascular congestion, basilar opacities, did not appreciate free air, nonspecific colonic gas. CT of the abdomen yesterday showed bibasilar atelectasis and effusions, cirrhotic liver, moderate perihepatic and perisplenic ascites, large amount of free air with some subcutaneous free air also present. IMPRESSION AND PLAN: A 67-year-old underlying cirrhosis with new diagnosis of colon cancer, postoperative day #5 from left hemicolectomy, now with severe sepsis, acute kidney injury, lactic acidosis, elevated procalcitonin consistent with peritonitis. We will start broad antibiotic coverage with vancomycin, Zosyn and fluconazole. I have discussed with nursing staff at the bedside. General Surgery has been apprised of his current condition and his scheduled followup imaging. We will continue fluid resuscitation per Nephrology recommendations. We will repeat his laboratory studies now including CBC and chemistry. <ELECTRONICALLY SIGNED> By: Alex Clay MD 12/16/17 0035 1727 17 Alex Clay MD /nt
--- NOTE | ~2017-12-08 | HC ---
[facility] [place] [address] [place] [address] CONSULTATION Name: JEANNINEJASONJED DYLAN Room #: 224-P [facility] IN M.R.#: [id number] Admission: 12/09/17 Attend Phys: Sacha Roe Discharge: Date of : 50 Report #: [id number] THIS REPORT FOR: //name// CC: Sacha Mcmullen HISTORY OF PRESENT ILLNESS: The patient is a 67-year-old man who was admitted for a laparoscopic sigmoidectomy after a sigmoid mass is found. The patient is recovering from this surgery. Neurological consultation is requested regarding tremors. 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 He is on donepezil 5 mg for complaints of memory loss. He takes gabapentin 400 mg b.i.d., apparently for peripheral neuropathy. He had been given Reglan p.r.n., but this has been discontinued. He states that he originally noted tremor several years ago starting in one side, but then affecting the other side. It is worse than the right side. He indicates that there is a family history of tremor in his paternal grandfather, as well as his father. He states that the tremor has gotten a lot worse since his surgery, however. When asked if he had ever been on any medication for either essential tremor or Parkinson's disease, he states that he did not believe so. The patient is significantly impaired by tremor and plans are to transfer him to rehab if he qualifies. PAST HISTORY: Otherwise unremarkable. FAMILY HISTORY: Positive for cancer in the family, as well as tremors in the father and grandfather. REVIEW OF SYSTEMS: Negative for the loss of sense of smell. He denies chest pain, shortness of breath or visual problems. He denies any thyroid issues and has never been diagnosed with Graves' disease, he says. PHYSICAL EXAMINATION: VITAL SIGNS: Temperature 36.5, pulse 76, blood pressure 155/86. GENERAL: The patient is sitting up in a bedside chair and he does not appear to be in any apparent distress. When I entered the room, he was asleep and there were no apparent involuntary movements in his sleep, but when he was awakened, there was noted a parkinsonian like tremor at rest, especially in the right arm. NEUROLOGIC: Mental status: He is alert and oriented. He could give a good medical narrative. On cranial nerve testing, the globes appear prominence, particularly on the right. There is redness in the right conjunctiva. Extraocular movements were full. There was no nystagmus or diplopia. Visual coleman were full to confrontation. There was no tremor of the face. [facility] [address] [place] [address] CONSULTATION Name: JED MCKEON Room #: 224-P [facility] IN M.R.#: [id number] Admission: 12/09/17 Attend Phys: Sacha Roe Discharge: Date of : 50 Report #: [id number] was intact. Facial sensation and mobility were normal. Tongue normal. Motor testing revealed full power in his arms and legs. I did not detect any cogwheel rigidity. There was parkinsonian tremor at rest in both upper extremities, more so on the right. However, the tremor became worse with activity, particularly with [id number] and it tended to become worse as the finger approached my finger or his nose. Sensation testing was intact to vibration, but decreased to pin. The patient has very dry skin and has a dermopathy of his lower extremities. Coordination testing as above was most suggestive of a cerebellar tremor. Reflexes were diminished throughout. Gait was not tested. LABORATORY DATA: Labs have shown a decrease in his hemoglobin since the surgery. He himself reports that he has gotten worse since the surgery, which may reflect a relative iron deficiency if essential tremor is part of the picture that could be part of the answer why it got worse. ASSESSMENT AND PLAN: The patient does have prominent globes raising the possibility of Graves' disease. We would recommend obtaining thyroid function tests if they have not been done. The patient has a complicated tremor history with a strong family history of essential tremor, but he also has strong Parkinson's features, but with the absence of clear-cut rigidity. 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 If he is transferred to rehab, I would like to start him on a therapeutic trial of carbidopa/levodopa under close observation. If not, I would like to wait several weeks and start the trial as an outpatient when he recovers more from his surgery. Thanks again for the kind consultation. <ELECTRONICALLY SIGNED> By: Marvin Tolliver MD 12/14/17 0920 [id number] [id number] Marvin Tolliver MD /nt
[~2017-12-08 05:28] MED LIST changes: +ALDACTONE50 MG PO; +ARICEPT 5 MG TAB5 MG PO; +CONSTULOSE10 GM/152 PO; -FLOMAX0.4 MG PER TUBE; +FLOMAX0.4 MG PO; +FOLIC ACID 40400 MC1 PO; +IRON325 PO; +KEFLEX500 M1 PO; +LASIX 40 MG TAB40 M2 PO; +LEXAPRO 10 MG T10 M1 PO; +LOTRIMIN AF12 GM TOP; +MAGOX 400400 MG PO; +NEURONTIN 400M400 M2 PO; +PROTONIX40 M1 PO; +RISPERIDONE 00.25 M1 PO; +[UNRECOGNIZED DRUG - OTHER] TOP
[2017-12-09 07:54] LABS: HEMATOCRIT 35.2 % (42.0-52.0)
[2017-12-09 08:02] LABS: CALCIUM 9.6 mg/dL (8.5-10.1); CREATININE 1.4 mg/dL (0.7-1.3); POTASSIUM 3.9 mmol/L (3.5-5.1)
[2017-12-09 08:08] LABS: ALBUMIN 2.5 g/dL (3.4-5.0); TOTAL BILIRUBIN 3.6 mg/dL (<0.1-1.0); TOTAL PROTEIN 6.3 g/dL (6.4-8.2)
[2017-12-09 08:10] VITALS: BP 138/60
[2017-12-09 15:00] VITALS: BP 139/68
[2017-12-09 16:00] VITALS: BP 134/71
[2017-12-09 16:02] LABS: HEMATOCRIT 32.3 % (42.0-52.0); HEMOGLOBIN 11.2 gm/dL (14.0-18.0); MCH 33.6 pg (26.0-34.0); MCHC 34.7 g/dL (28.0-37.0); MCV 96.8 fL (80.0-100.0); RBC 3.34 mil/uL (4.50-6.00); RDW 15.5 % (10.5-14.5); WBC 6.4 thou/uL (4.0-11.0)
[2017-12-09 16:09] LABS: CREATININE 1.8 mg/dL (0.7-1.3); POTASSIUM 4.7 mmol/L (3.5-5.1)
[2017-12-09 20:29] VITALS: BP 134/58
[2017-12-10 04:43] VITALS: BP 118/61; BP 18/61
[2017-12-10 06:07] LABS: ABSOLUTE NEUTROPHILS 7.4 thou/uL (1.4-8.2); BASOPHILS 0.2 % (0.0-2.0); HEMATOCRIT 29.1 % (42.0-52.0); HEMOGLOBIN 9.8 gm/dL (14.0-18.0); LYMPHOCYTES 6.5 % (24.0-44.0); MCH 32.7 pg (26.0-34.0); MCHC 33.6 g/dL (28.0-37.0); MCV 97.4 fL (80.0-100.0); MONOCYTES 5.4 % (1.0-8.0); POLYS 87.9 % (36.0-66.0); RBC 2.99 mil/uL (4.50-6.00); RDW 15.8 % (10.5-14.5); WBC 8.4 thou/uL (4.0-11.0)
[2017-12-10 06:21] LABS: POTASSIUM 3.9 mmol/L (3.5-5.1)
[2017-12-10 06:32] LABS: PLATELET COUNT 73 thou/uL (150-400)
[2017-12-10 06:57] LABS: ALBUMIN 2.2 g/dL (3.4-5.0); TOTAL BILIRUBIN 2.7 mg/dL (<0.1-1.0); TOTAL PROTEIN 5.7 g/dL (6.4-8.2)
[2017-12-10 07:00] LABS: APTT 29.2 Seconds (24.5-32.8); INR 1.3; PROTIME 13.4 Seconds (9.3-11.4)
[2017-12-10 08:31] VITALS: BP 106/57
[2017-12-10 11:30] VITALS: BP 106/57
[2017-12-10 16:45] VITALS: BP 152/58
[2017-12-11 07:20] VITALS: BP 155/86
[2017-12-11 08:26] LABS: ABSOLUTE NEUTROPHILS 6.6 thou/uL (1.4-8.2); BASOPHILS 0.2 % (0.0-2.0); EOSINOPHILS 0.1 % (0.0-3.0); HEMATOCRIT 27.3 % (42.0-52.0); HEMOGLOBIN 9.6 gm/dL (14.0-18.0); LYMPHOCYTES 14.6 % (24.0-44.0); MCH 33.7 pg (26.0-34.0); MCHC 35.2 g/dL (28.0-37.0); MCV 95.5 fL (80.0-100.0); MONOCYTES 6.4 % (1.0-8.0); PLATELET COUNT 78 thou/uL (150-400); POLYS 78.7 % (36.0-66.0); RBC 2.86 mil/uL (4.50-6.00); RDW 15.7 % (10.5-14.5); WBC 8.4 thou/uL (4.0-11.0)
[2017-12-11 08:34] LABS: CALCIUM 8.6 mg/dL (8.5-10.1); CREATININE 1.5 mg/dL (0.7-1.3); POTASSIUM 4.6 mmol/L (3.5-5.1)
[2017-12-11 19:21] VITALS: BP 145/55
[2017-12-12 07:55] LABS: BASOPHILS 0.7 % (0.0-2.0); EOSINOPHILS 1.6 % (0.0-3.0); HEMATOCRIT 28.6 % (42.0-52.0); HEMOGLOBIN 9.8 gm/dL (14.0-18.0); LYMPHOCYTES 11.5 % (24.0-44.0); MCH 32.7 pg (26.0-34.0); MCHC 34.1 g/dL (28.0-37.0); MCV 95.8 fL (80.0-100.0); MONOCYTES 10.5 % (1.0-8.0); POLYS 75.7 % (36.0-66.0); RBC 2.99 mil/uL (4.50-6.00); RDW 15.5 % (10.5-14.5); WBC 9.2 thou/uL (4.0-11.0)
[2017-12-12 08:05] LABS: CREATININE 1.2 mg/dL (0.7-1.3); POTASSIUM 4.9 mmol/L (3.5-5.1)
[2017-12-12 08:20] VITALS: BP 155/67
[2017-12-12 10:26] LABS: PLATELET COUNT 87 thou/uL (150-400)
[2017-12-12 20:16] VITALS: BP 157/65
[2017-12-13 08:01] VITALS: BP 140/59
[2017-12-13 16:54] LABS: HEMATOCRIT 28.4 % (42.0-52.0); HEMOGLOBIN 9.9 gm/dL (14.0-18.0); MCH 33.7 pg (26.0-34.0); MCHC 34.7 g/dL (28.0-37.0); RBC 2.93 mil/uL (4.50-6.00); RDW 15.9 % (10.5-14.5); WBC 14.6 thou/uL (4.0-11.0)
[2017-12-13 17:10] LABS: ALBUMIN 2.1 g/dL (3.4-5.0); CALCIUM 8.5 mg/dL (8.5-10.1); CREATININE 1.3 mg/dL (0.7-1.3); MAGNESIUM 1.9 mg/dL (1.8-2.4); POTASSIUM 4.3 mmol/L (3.5-5.1); TOTAL BILIRUBIN 3.9 mg/dL (<0.1-1.0)
[2017-12-13 21:16] VITALS: BP 140/63
[2017-12-14 07:35] VITALS: BP 147/62
[2017-12-14 07:53] LABS: CALCIUM 8.3 mg/dL (8.5-10.1); CREATININE 1.1 mg/dL (0.7-1.3); MAGNESIUM 1.9 mg/dL (1.8-2.4); POTASSIUM 4.3 mmol/L (3.5-5.1)
[2017-12-14 10:10] LABS: HEMATOCRIT 34.3 % (42.0-52.0); MCH 33.8 pg (26.0-34.0); MCHC 35.1 g/dL (28.0-37.0); MCV 96.2 fL (80.0-100.0); RBC 3.57 mil/uL (4.50-6.00); RDW 15.8 % (10.5-14.5); WBC 3.8 thou/uL (4.0-11.0)
[2017-12-14 10:12] LABS: HEMOGLOBIN 12.1 gm/dL (14.0-18.0)
[2017-12-14 10:19] LABS: ALBUMIN 2.2 g/dL (3.4-5.0); DIRECT BILIRUBIN 1.8 mg/dL (<0.1-0.3); TOTAL BILIRUBIN 4.3 mg/dL (<0.1-1.0); TOTAL PROTEIN 5.4 g/dL (6.4-8.2)
[2017-12-14 12:00] VITALS: BP 115/74
[2017-12-14 19:18] VITALS: BP 115/49
[2017-12-15] VITALS (41 sets, daily range): BP systolic 100–154; BP diastolic 42–67
[2017-12-15 06:06] LABS: HEMATOCRIT 32.8 % (42.0-52.0); HEMOGLOBIN 10.9 gm/dL (14.0-18.0); MCH 32.4 pg (26.0-34.0); MCHC 33.4 g/dL (28.0-37.0); MCV 97.1 fL (80.0-100.0); RBC 3.37 mil/uL (4.50-6.00); RDW 15.9 % (10.5-14.5)
[2017-12-15 06:22] LABS: CALCIUM 8.2 mg/dL (8.5-10.1); MAGNESIUM 1.9 mg/dL (1.8-2.4); POTASSIUM 4.3 mmol/L (3.5-5.1)
[2017-12-15 12:55] LABS: PROTIME 20.7 Seconds (9.3-11.4)
[2017-12-15 13:23] LABS: URINE BLOOD 1+ (Negative); URINE CLARITY CLEAR; URINE GLUCOSE-RANDOM* NEGATIVE (Negative); URINE KETONES TRACE (Negative); URINE LEUKOCYTES-REFLEX NEGATIVE (Negative); URINE PROTEIN (DIPSTICK) NEGATIVE (Negative)
[2017-12-15 13:25] LABS: ICTOTEST (BILI CONFIRMATORY) Negative (Negative); URINE BILIRUBIN NEGATIVE (Negative); URINE COLOR DK YELLOW; URINE NITRITE-REFLEX POSITIVE (Negative)
[2017-12-15 13:33] LABS: CASTS None Seen /LPF (None Seen); SQUAMOUS 0-3 Few /LPF (0-3)
[2017-12-15 13:36] LABS: MUCUS >6 Heavy strn/LPF (None Seen); URINE CREATININE-RANDOM* 261.3 mg/dL; URINE SODIUM-RANDOM* <5 mmol/L; URINE WBC-REFLEX 0-5 Rare /HPF (0-5)
[2017-12-15 13:37] LABS: BACTERIA-REFLEX 1-9 Few /HPF (None Seen); CRYSTALS None Seen /LPF (None Seen); URINE RBC 0-2 Rare /HPF (0-2)
[2017-12-15 15:11] LABS: BE(vivo) -0.9 mmol/L (-2 to +3); HCO3 23.7 mmol/L (22.0-26.0); PCO2 39.4 mmHg (35.0-45.0); PO2 67.6 mmHg (80.0-100.0); pH 7.398 (7.360-7.450); sO2 93.5 % (92.0-98.0)
[2017-12-15 18:14] LABS: ABSOLUTE NEUTROPHILS 12.8 thou/uL (1.4-8.2); BASOPHILS 0.2 % (0.0-2.0); HEMATOCRIT 28.3 % (42.0-52.0); HEMOGLOBIN 9.7 gm/dL (14.0-18.0); LYMPHOCYTES 5.4 % (24.0-44.0); MCH 33.3 pg (26.0-34.0); MCHC 34.3 g/dL (28.0-37.0); MCV 97.1 fL (80.0-100.0); MONOCYTES 7.7 % (1.0-8.0); PLATELET COUNT 97 thou/uL (150-400); POLYS 86.7 % (36.0-66.0); RBC 2.91 mil/uL (4.50-6.00); RDW 15.8 % (10.5-14.5); WBC 14.8 thou/uL (4.0-11.0)
[2017-12-15 18:25] LABS: ALBUMIN 1.5 g/dL (3.4-5.0); CALCIUM 8.2 mg/dL (8.5-10.1); CREATININE 1.8 mg/dL (0.7-1.3); POTASSIUM 4.2 mmol/L (3.5-5.1); TOTAL BILIRUBIN 4.2 mg/dL (<0.1-1.0); TOTAL PROTEIN 4.6 g/dL (6.4-8.2)
[2017-12-16] VITALS (25 sets, daily range): BP systolic 114–142; BP diastolic 50–65
[2017-12-16 06:14] LABS: HEMATOCRIT 29.3 % (42.0-52.0); HEMOGLOBIN 10.1 gm/dL (14.0-18.0); MCH 33.3 pg (26.0-34.0); MCHC 34.5 g/dL (28.0-37.0); MCV 96.7 fL (80.0-100.0); RBC 3.03 mil/uL (4.50-6.00); RDW 16.3 % (10.5-14.5); WBC 14.4 thou/uL (4.0-11.0)
[2017-12-16 06:25] LABS: ALBUMIN 1.6 g/dL (3.4-5.0); CALCIUM 8.5 mg/dL (8.5-10.1); CREATININE 1.6 mg/dL (0.7-1.3); PHOSPHORUS 3.5 mg/dL (2.5-4.9); POTASSIUM 4.3 mmol/L (3.5-5.1); TOTAL BILIRUBIN 4.2 mg/dL (<0.1-1.0)
[2017-12-16 11:32] LABS: INR 1.7; PROTIME 17.1 Seconds (9.3-11.4)
[2017-12-16 15:46] LABS: SOURCE RIGHT CHEST; TOTAL VOLUME 60 mL
[2017-12-16 15:47] LABS: CLARITY CLOUDY; COLOR RED
[2017-12-16 16:06] LABS: BF NUCLEATED CELLS 1776; BF RBC 8383
[2017-12-16 17:56] LABS: BF MACROPHAGE 2; BF NEUTROPHILS 94
[2017-12-17] VITALS (21 sets, daily range): BP systolic 113–136; BP diastolic 48–62
[2017-12-17 05:36] LABS: ABSOLUTE NEUTROPHILS 15.4 thou/uL (1.4-8.2); BASOPHILS 0.3 % (0.0-2.0); HEMATOCRIT 28.8 % (42.0-52.0); HEMOGLOBIN 9.7 gm/dL (14.0-18.0); LYMPHOCYTES 6.2 % (24.0-44.0); MCH 32.7 pg (26.0-34.0); MCHC 33.7 g/dL (28.0-37.0); MONOCYTES 4.8 % (1.0-8.0); PLATELET COUNT 113 thou/uL (150-400); POLYS 88.7 % (36.0-66.0); RBC 2.97 mil/uL (4.50-6.00); WBC 17.4 thou/uL (4.0-11.0)
[2017-12-17 05:41] LABS: ALBUMIN 1.3 g/dL (3.4-5.0); CALCIUM 7.5 mg/dL (8.5-10.1); CREATININE 1.5 mg/dL (0.7-1.3); PHOSPHORUS 2.8 mg/dL (2.5-4.9); POTASSIUM 3.5 mmol/L (3.5-5.1); TOTAL BILIRUBIN 3.6 mg/dL (<0.1-1.0); TOTAL PROTEIN 4.1 g/dL (6.4-8.2)
[2017-12-17 08:51] LABS: SOURCE THORACENTESIS
[2017-12-17 16:45] LABS: BODY FLUID ALBUMIN 0.6 g/dL (()); BODY FLUID AMYLASE 22 U/L (()); BODY FLUID GLUCOSE 65 mg/dL (()); BODY FLUID LDH 721 IU/L (()); BODY FLUID PROTEIN 1.3 g/dL (())
[2017-12-18] VITALS (24 sets, daily range): BP systolic 106–145; BP diastolic 48–75
[2017-12-18 06:03] LABS: ABSOLUTE NEUTROPHILS 13.9 thou/uL (1.4-8.2); BASOPHILS 0.3 % (0.0-2.0); EOSINOPHILS 0.6 % (0.0-3.0); HEMATOCRIT 28.9 % (42.0-52.0); HEMOGLOBIN 9.8 gm/dL (14.0-18.0); LYMPHOCYTES 6.6 % (24.0-44.0); MCH 32.8 pg (26.0-34.0); MCHC 33.8 g/dL (28.0-37.0); MONOCYTES 6.5 % (1.0-8.0); RBC 2.98 mil/uL (4.50-6.00); RDW 16.3 % (10.5-14.5); WBC 16.2 thou/uL (4.0-11.0)
[2017-12-18 06:14] LABS: ALBUMIN 1.4 g/dL (3.4-5.0); CALCIUM 8.4 mg/dL (8.5-10.1); CREATININE 1.5 mg/dL (0.7-1.3); MAGNESIUM 2.3 mg/dL (1.8-2.4); PHOSPHORUS 3.2 mg/dL (2.5-4.9); POTASSIUM 3.7 mmol/L (3.5-5.1); TOTAL BILIRUBIN 3.7 mg/dL (<0.1-1.0); TOTAL PROTEIN 4.6 g/dL (6.4-8.2)
[2017-12-18 08:18] LABS: ANISOCYTOSIS 2+; PLATELET COUNT 81 thou/uL (150-400); PLATELET ESTIMATE SLIGHTLY DECREASED
[2017-12-18 10:53] LABS: APTT 43.3 Seconds (24.5-32.8); INR 1.3; PROTIME 13.4 Seconds (9.3-11.4)
[2017-12-18 13:02] LABS: CLARITY CLOUDY; COLOR DARK YELLOW; SOURCE ABDOMINAL; TOTAL VOLUME 60 mL
[2017-12-18 13:30] LABS: BF NUCLEATED CELLS 16630; BF RBC 11561
[2017-12-18 14:26] LABS: BF NEUTROPHILS 96
[2017-12-18 14:27] LABS: BF MACROPHAGE 1
[2017-12-19] VITALS (54 sets, daily range): BP systolic 70–123; BP diastolic 34–59
[2017-12-19 04:05] LABS: HEMATOCRIT 31.4 % (42.0-52.0); HEMOGLOBIN 10.5 gm/dL (14.0-18.0); MCH 32.2 pg (26.0-34.0); MCHC 33.5 g/dL (28.0-37.0); MCV 96.2 fL (80.0-100.0); PLATELET COUNT 81 thou/uL (150-400); RBC 3.27 mil/uL (4.50-6.00); RDW 16.4 % (10.5-14.5); WBC 22.5 thou/uL (4.0-11.0)
[2017-12-19 04:15] LABS: ALBUMIN 1.3 g/dL (3.4-5.0); CALCIUM 8.8 mg/dL (8.5-10.1); CREATININE 1.9 mg/dL (0.7-1.3); PHOSPHORUS 3.4 mg/dL (2.5-4.9); POTASSIUM 3.8 mmol/L (3.5-5.1)
[2017-12-19 04:40] LABS: ABSOLUTE NEUTROPHILS 19.8 thou/uL (1.4-8.2)
[2017-12-19 04:41] LABS: ANISOCYTOSIS 1+; BURR CELLS 1+; OVALOCYTES 1+; POIKILOCYTOSIS 1+; POLYCHROMASIA SLIGHT; TOXIC GRANULATION 1+
[2017-12-19 08:32] LABS: BE(vivo) -4.6 mmol/L (-2 to +3); HCO3 20.2 mmol/L (22.0-26.0); PO2 70.3 mmHg (80.0-100.0); pH 7.366 (7.360-7.450); sO2 93.8 % (92.0-98.0)
[2017-12-19 12:42] LABS: MAGNESIUM 2.2 mg/dL (1.8-2.4)
[2017-12-19 18:33] LABS: HEMATOCRIT 29.7 % (42.0-52.0); MCH 32.3 pg (26.0-34.0); MCHC 33.5 g/dL (28.0-37.0); MCV 96.3 fL (80.0-100.0); RBC 3.09 mil/uL (4.50-6.00); WBC 33.4 thou/uL (4.0-11.0)
[2017-12-19 20:17] LABS: CALCIUM 8.9 mg/dL (8.5-10.1); CREATININE 2.4 mg/dL (0.7-1.3); POTASSIUM 3.9 mmol/L (3.5-5.1)
[2017-12-19 20:59] LABS: FIBRINOGEN 287.5 mg/dL (210-360); INR 1.4; PROTIME 14.5 Seconds (9.3-11.4)
[2017-12-19 21:03] LABS: APTT 58.9 Seconds (24.5-32.8)
[2017-12-20] VITALS (68 sets, daily range): BP systolic 102–149; BP diastolic 36–54
[2017-12-20 06:21] LABS: ALBUMIN 2.2 g/dL (3.4-5.0); CALCIUM 8.6 mg/dL (8.5-10.1); CREATININE 2.5 mg/dL (0.7-1.3); MAGNESIUM 2.1 mg/dL (1.8-2.4); POTASSIUM 3.9 mmol/L (3.5-5.1); TOTAL BILIRUBIN 4.2 mg/dL (<0.1-1.0); TOTAL PROTEIN 4.7 g/dL (6.4-8.2)
[2017-12-20 09:20] LABS: HEMATOCRIT 26.2 % (42.0-52.0); HEMOGLOBIN 8.7 gm/dL (14.0-18.0); MCH 32.4 pg (26.0-34.0); MCHC 33.1 g/dL (28.0-37.0); MCV 97.7 fL (80.0-100.0); RBC 2.68 mil/uL (4.50-6.00); RDW 16.9 % (10.5-14.5); WBC 38.1 thou/uL (4.0-11.0)
[2017-12-20 10:36] LABS: BE(vivo) -7.9 mmol/L (-2 to +3); HCO3 17.3 mmol/L (22.0-26.0); PCO2 34.2 mmHg (35.0-45.0); PO2 54.9 mmHg (80.0-100.0); pH 7.322 (7.360-7.450); sO2 86.6 % (92.0-98.0)
[2017-12-21] VITALS (52 sets, daily range): BP systolic 91–140; BP diastolic 34–116
[2017-12-21 05:23] LABS: HEMATOCRIT 24.6 % (42.0-52.0); HEMOGLOBIN 7.9 gm/dL (14.0-18.0); MCH 31.2 pg (26.0-34.0); MCHC 32.2 g/dL (28.0-37.0); MCV 97.1 fL (80.0-100.0); RBC 2.53 mil/uL (4.50-6.00); RDW 16.3 % (10.5-14.5); WBC 29.9 thou/uL (4.0-11.0)
[2017-12-21 05:36] LABS: ALBUMIN 2.5 g/dL (3.4-5.0); CALCIUM 8.9 mg/dL (8.5-10.1); CREATININE 2.6 mg/dL (0.7-1.3); MAGNESIUM 2.4 mg/dL (1.8-2.4); PHOSPHORUS 4.6 mg/dL (2.5-4.9); POTASSIUM 4.2 mmol/L (3.5-5.1); TOTAL BILIRUBIN 4.3 mg/dL (<0.1-1.0)
[2017-12-21 05:54] LABS: TOTAL PROTEIN 4.8 g/dL (6.4-8.2)
[2017-12-22] VITALS (73 sets, daily range): BP systolic 68–115; BP diastolic 29–52
[2017-12-22 07:05] LABS: MCHC 33.9 g/dL (28.0-37.0); WBC 16.7 thou/uL (4.0-11.0)
[2017-12-22 07:08] LABS: HEMATOCRIT 21.7 % (42.0-52.0); HEMOGLOBIN 7.3 gm/dL (14.0-18.0); MCH 32.6 pg (26.0-34.0); RBC 2.26 mil/uL (4.50-6.00); RDW 16.3 % (10.5-14.5)
[2017-12-22 07:22] LABS: ALBUMIN 3.2 g/dL (3.4-5.0); CALCIUM 9.4 mg/dL (8.5-10.1); CREATININE 3.2 mg/dL (0.7-1.3); POTASSIUM 4.4 mmol/L (3.5-5.1)
[2017-12-22 08:28] LABS: ABSOLUTE NEUTROPHILS 14.4 thou/uL (1.4-8.2); ANISOCYTOSIS 2+; MACROCYTES 1+; MICROCYTES 1+; POLYCHROMASIA SLIGHT
[2017-12-22 08:29] LABS: OVALOCYTES FEW
[2017-12-22 08:30] LABS: TOXIC GRANULATION 1+
[2017-12-22 10:00] LABS: PLATELET COUNT 29 thou/uL (150-400)
== END 2017-12-22 18:43 | DRG 853 ==
LOC: TBA 05:28 → PRE 05:28 → 4E 12-09 05:34 → TBA 12-09 05:34 → 4E 12-09 15:04 → PRE 12-09 16:36 → SICU 12-10 16:52 → 4W 12-14 12:06 → ICU 12-15 10:56
PROVIDERS: Hospitalist; Internal Medicine; Internal Medicine Nephrology; Pediatrics; Radiology Vascular & Interventional Radiology; Specialist; Surgery
DX: A41.59 Other Gram-negative sepsis (principal); K65.9 Peritonitis, unspecified; J96.01 Acute respiratory failure with hypoxia; R65.21 Severe sepsis with septic shock; R40.20 Unspecified coma; C18.6 Malignant neoplasm of descending colon; N17.9 Acute kidney failure, unspecified; E44.0 Moderate protein-calorie malnutrition; E87.2 Acidosis; G93.49 Other encephalopathy; K56.7 Ileus, unspecified; F05 Delirium due to known physiological condition; C18.7 Malignant neoplasm of sigmoid colon; G62.9 Polyneuropathy, unspecified; J44.9 Chronic obstructive pulmonary disease, unspecified; I48.0 Paroxysmal atrial fibrillation; N18.9 Chronic kidney disease, unspecified; D69.6 Thrombocytopenia, unspecified; N40.0 Benign prostatic hyperplasia without lower urinary tract symptoms; K70.31 Alcoholic cirrhosis of liver with ascites; E87.8 Other disorders of electrolyte and fluid balance, not elsewhere classified; D63.8 Anemia in other chronic diseases classified elsewhere; G20 Parkinson's disease; Z68.38 Body mass index [BMI] 38.0-38.9, adult; Z87.891 Personal history of nicotine dependence; Z80.8 Family history of malignant neoplasm of other organs or systems
CPT/HCPCS: 10045; 10078; 10783; 15002; 27000; 50010; 50101; 50249; 50290; 50386; 50455; 50525; 50555; 50558; 50740; 50804; 51398; 51437; 51489; 51708; 52182; 52265; 53307; 53310; 54022; 54118; 56462; 56525; 56526; 56530; 56753; 57092; 62110; 62900; 70005